=== PATIENT | female | born 1965 ===

== ENCOUNTER 2016-10-12 08:31 | Day surgery (SDC) | payer OTHER ==
[2016-10-12] MEDS ORDERED: Midazolam 2 MG/2 ML VIAL ONE (10:05)
[2016-10-12] MEDS ORDERED: Propofol 10 mg/ml Inj (20 ML) ONE (10:05)
[2016-10-12 10:28] VITALS: O2SAT 100
[2016-10-12 11:41] VITALS: RESP 12; TEMP 97
[2016-10-12 12:28] VITALS: BP 123/69; PULSE 59
== END 2016-10-12 12:10 | disposition home or self-care (01) ==
LOC: C.ENDO 08:31
PROVIDERS: ATTEND Internal Medicine Gastroenterology
DX: Z12.11 Encounter for screening for malignant neoplasm of colon (principal); D12.0 Benign neoplasm of cecum; K63.89 Other specified diseases of intestine; K64.4 Residual hemorrhoidal skin tags; K64.8 Other hemorrhoids
CPT/HCPCS: 45380; 45385; 88305; J2001; J2250; J2704